=== PATIENT | female | born 1985 | race Caucasian/White ===

== ENCOUNTER 2022-11-13 18:28 | Observation (INO) | payer OTHER ==
[~2022-11-13] VITALS: Ht 152.4 cm; Wt 105.7 kg
[2022-11-13 19:01] LABS: BASO # 0.1 K/mm3 (0.0-0.2); BASO % 0.8 % (0.0-2.0); EOS # 0.1 K/mm3 (0.0-0.7); EOS % 1.1 % (0.0-4.0); GRAN # 5.5 K/mm3 (1.4-6.5); GRAN % 59.5 % (42.2-75.2); HEMATOCRIT 37.1 % (37.0-47.0); HEMOGLOBIN 12.3 g/dl (12.5-16.0); LYMPH # 2.9 K/mm3 (1.2-3.4); LYMPH % 30.7 % (20.0-51.0); MEAN CELL VOLUME 86 fl (80.0-100.0); MEAN CORPUSCULAR HEMOGLOBIN 29 pg (27-31); MEAN CORPUSCULAR HGB CONC 33 g/dl (33.0-37.0); MEAN PLATELET VOLUME 10.5 fl (7.4-10.4); MONO # 0.7 K/mm3 (0.1-0.6); MONO % 7.7 % (1.7-9.3); PLATELET COUNT 335 K/mm3 (130-400); RED BLOOD COUNT 4.32 M/mm3 (4.10-5.30); REDCELL DISTRIBUTION WIDTH-CV 13.5 % (11.5-14.5)
[2022-11-13 19:07] LABS: INR 1.1 (0.8-3.0); PROTHROMBIN TIME 12.5 SECONDS (9.7-12.8)
[2022-11-13 19:09] LABS: PARTIAL THROMBOPLASTIN TIME 30.7 SECONDS (26.0-37.0)
[2022-11-13 19:17] LABS: ALANINE AMINOTRANSFERASE 18 U/L (0-55); ALBUMIN 3.9 gm/dL (3.5-5.0); ALKALINE PHOSPHATASE 67 U/L (40-150); ANION GAP 10 mmol/L (7-16); AST,SGOT 17 U/L (5-34); BILIRUBIN,TOTAL 0.3 mg/dL (0.2-1.2); BLOOD UREA NITROGEN 9 mg/dL (7-19); CALCIUM 9.1 mg/dL (8.4-10.2); CARBON DIOXIDE 24 mmol/L (22-29); CHLORIDE 106 mmol/L (98-107); CREATININE, serum 0.85 mg/dL (0.57-1.11); GLUCOSE 88 mg/dL (70-99); POTASSIUM 3.6 mmol/L (3.5-4.5); SODIUM 140 mmol/L (136-145); TOTAL PROTEIN 7.5 gm/dL (6.2-8.1)
[2022-11-13 19:19] LABS: ALCOHOL(ethanol),MEDICAL < 10 mg/dL (0-10)
[2022-11-13 19:22] LABS: TRICYCLIC ANTIDEPRESS URINE NEGATIVE
[2022-11-13 21:00] VITALS: BP 102/67; PULSE 89; TEMP 98.2
--- NOTE | 2022-11-13 21:30 | NUR ---
Pt transferred to room 306 @ approx 2049 via w/c by hospital technician. Pt transfers to bed w/o assistance and w/o difficulty. NIHAIRKA Rothman present to assess pt. VS obtained BP 102/67 HR 89 O2 100% RR 16 RA Temp 98.2 orally. A&Ox4. Admission intake completed. Physical exam completed. RUE weakness noted along w/ right sided facial drooping. LUE strong w/ no deficits noted. RLE has no weakness. PERRLA. Speech is clear and appropriate. Respirations are even and unlabored on room air. Heart sounds RRR. Abd rounded and soft. No skin variances noted. Pt denies pain, nausea, vomitting, lightheadedness, dizziness, palpitations, or dyspnea. Family is @ bedside. Pt oriented to room. No needs or concerns voiced. Call light in reach.
[2022-11-13 23:54] VITALS: BP 127/56; PULSE 81; TEMP 97.8
--- NOTE | 2022-11-14 00:05 | NUR ---
Neuro checks performed. No new deficits noted. Weakness to RUE and slight right facial drooping near mouth. A&Ox4. PERRLA. Speech clear and appropriate. Respirations are even and unlabored. Pt cont to deny pain, lightheadedness, dizziness, or radiating of weakness. Call light in reach.
--- NOTE | 2022-11-14 01:50 | NUR ---
This RN agrees with W[employer] SERVICE SUPERVISOR assessment.
[2022-11-14 04:01] VITALS: BP 124/66; PULSE 91; TEMP 98.3
--- NOTE | 2022-11-14 05:33 | NUR ---
Pt monitored throughout night by this nurse. No adverse events over night. Neuro checks conducted w/o change in RUE weakness and facial drooping. Pt does report some blurriness in right eye that began approx 1 day ago. Speech is clear and appropriate. PERRLA. Respirations are even and unlabored. Telemetry in place monitoring cardiac activity. Sinus rhythm @ 79bpm. No signs of distress noted. Call light in reach.
[2022-11-14 08:01] VITALS: BP 118/66; PULSE 83; TEMP 98
[2022-11-14 08:36] LABS: HEMATOCRIT 38.2 % (37.0-47.0); HEMOGLOBIN 12.7 g/dl (12.5-16.0); MEAN CELL VOLUME 85 fl (80.0-100.0); MEAN CORPUSCULAR HEMOGLOBIN 28 pg (27-31); MEAN CORPUSCULAR HGB CONC 33 g/dl (33.0-37.0); MEAN PLATELET VOLUME 10.5 fl (7.4-10.4); PLATELET COUNT 340 K/mm3 (130-400); REDCELL DISTRIBUTION WIDTH-CV 13.5 % (11.5-14.5)
[2022-11-14 09:15] LABS: ALBUMIN 3.8 gm/dL (3.5-5.0); BILIRUBIN,TOTAL 0.4 mg/dL (0.2-1.2); CALCIUM 9.2 mg/dL (8.4-10.2); CREATININE, serum 0.84 mg/dL (0.57-1.11); POTASSIUM 3.8 mmol/L (3.5-4.5); TOTAL PROTEIN 7.7 gm/dL (6.2-8.1)
[2022-11-14 09:35] LABS: THYROID STIMULATING HORMONE 1.086 uIU/mL (0.350-4.940)
--- NOTE | 2022-11-14 10:05 | NUR ---
SW met with pt for intake. Pt confirmed living in [facility] with children. Pt confirmed [facility] as Marlene Ramos (mother living in [place] [phone]). Pt denied having a PCP due to recently acquiring insurance. Pt would like PCP list. Pt utilizes [facility] for pharmacy and denies issues. Pt denies o2 and/or DME use. Pt reports 10 stairs in home and denies any issues. Pt requested DPOA paperwork and is aware needs two staff present for signature. Pt reports mother is enroute to come and assist from [place]. Pt denies any issues and/or needs at this time. D/C plan home with mother
--- NOTE | 2022-11-14 11:08 | NUR ---
Patient is resting in bed, alert and oriened, waiting for her MRI. Getting Fluids at 100ml/hr. Telemetry in place, NRS. Some headache, tylenol provided. Assessment completed, still weakness on her right side. Call light within reach.
[2022-11-14 12:18] LABS: COLLECTION METHOD CLEAN CATCH
[2022-11-14 12:21] VITALS: BP 120/73; PULSE 93; TEMP 97.9
[2022-11-14 12:40] LABS: SQUAMOUS EPITHELIAL 0-2 /hpf (0-10); URINE BACTERIA None Seen /hpf (NONE SEEN); URINE RBC None Seen /hpf (0-2); URINE WBC 0-2 /hpf (0-2)
[2022-11-14 12:52] LABS: PH 5.5 (5.0-8.5); URINE APPEARANCE Clear (CLEAR/HAZY); URINE BLOOD Negative (NEGATIVE); URINE COLOR Yellow (YELLOW); URINE GLUCOSE Negative (NEGATIVE); URINE KETONE Negative (NEGATIVE); URINE NITRATE Negative (NEGATIVE); URINE PROTEIN(semi-quant) Negative (NEGATIVE); URINE UROBILINOGEN 0.2 E.U/dL (0.2-1.0)
[2022-11-14 13:00] VITALS: BP_SYST 120
[2022-11-14] MEDS ORDERED: PREDNISONE10 MG PO (14:26)
[2022-11-14 15:51] VITALS: BP 136/69; PULSE 88; TEMP 98.4
[2022-11-14 17:00] VITALS: BP_SYST 136
--- NOTE | 2022-11-14 17:39 | NUR ---
Patient was provided with discharge information, all questions answered. IV access and telemetry were discontinued.
== END 2022-11-14 17:41 | disposition home or self-care (01) ==
LOC: COL.ER 18:28 → MEDICAL 20:01
PROVIDERS: Emergency Medicine; ADMIT Physician Assistant
DX: G45.9 Transient cerebral ischemic attack, unspecified (principal); R29.705 NIHSS score 5; R29.810 Facial weakness; R53.1 Weakness; R11.0 Nausea; Z79.899 Other long term (current) drug therapy
CPT/HCPCS: G0378; J7030; J7512